=== PATIENT | female | born 1955 | race Caucasian/White ===

== ENCOUNTER 2018-11-15 22:56 | Emergency (ER) | payer OTHER, BC ==
[~2018-11-15] VITALS: Ht 170.2 cm; Wt 59.0 kg
[2018-11-15 23:28] LABS: URINE BILIRUBIN NEGATIVE (Negative); URINE BLOOD TRACE (Negative); URINE CLARITY CLEAR; URINE COLOR YELLOW; URINE GLUCOSE-RANDOM* NEGATIVE (Negative); URINE KETONES 2+ (Negative); URINE NITRITE-REFLEX NEGATIVE (Negative); URINE PROTEIN (DIPSTICK) NEGATIVE (Negative); URINE SPECIFIC GRAVITY <= 1.005 (1.005-1.035); URINE UROBILINOGEN 0.2 E.U./dl (0.2-1.0)
[2018-11-15 23:34] LABS: URINE LEUKOCYTES-REFLEX 1+ (Negative)
[2018-11-15 23:35] LABS: CASTS None Seen /LPF (None Seen); MUCUS None Seen strn/LPF (None Seen); SQUAMOUS 0-3 Few /LPF (0-3); URINE RBC None Seen /HPF (0-2); URINE WBC-REFLEX 0-5 Rare /HPF (0-5)
[2018-11-15 23:36] LABS: BACTERIA-REFLEX None Seen /HPF (None Seen); CRYSTALS None Seen /LPF (None Seen)
[2018-11-15 23:37] LABS: HEMATOCRIT 35.7 % (37.0-47.0); HEMOGLOBIN 12.3 gm/dL (12.0-15.0); MCHC 34.6 g/dL (28.0-37.0); MCV 92.6 fL (80.0-100.0); RBC 3.86 mil/uL (4.20-5.00); RDW 13.2 % (10.5-14.5)
[2018-11-15 23:41] LABS: AMP/METHAMP Negative (Negative); BARBITURATES Negative (Negative); BENZODIAZEPINES Negative (Negative); COCAINE Negative (Negative); METHADONE Negative (Negative); OPIATES Negative (Negative); PCP Negative (Negative)
[2018-11-15 23:43] LABS: CALCIUM 8.9 mg/dL (8.5-10.1); CREATININE 0.7 mg/dL (0.6-1.0)
[2018-11-15 23:51] LABS: POTASSIUM 2.8 mmol/L (3.5-5.1)
[2018-11-16] MEDS ORDERED: MAG-OXIDE400 MG PO (01:32)
[2018-11-16] MEDS ORDERED: KLOR-CON 1010 MEQ PO (01:32)
[2018-11-16 02:15] VITALS: BP 153/82
[2018-11-17] MEDS ORDERED: ZOLOFT25 MG (00:25)
[2018-11-17] MEDS ORDERED: WELLBUTRIN 100100 MG PO (00:25)
[2018-11-17] MEDS ORDERED: CLONAZEPAM 0.50.5 M1 (00:26)
[2018-11-17] MEDS ORDERED: TIROSINT25 MCG (00:26)
[2018-11-17] MEDS ORDERED: TRAZODONE HCL50 MG (00:27)
[2018-11-17] MEDS ORDERED: NIACIN50 MG (00:27)
[2018-11-17] MEDS ORDERED: ZOCOR20 MG (00:27)
== END 2018-11-16 02:15 | disposition home or self-care (01) ==
LOC: ER 22:56
PROVIDERS: Emergency Medicine
DX: R41.0 Disorientation, unspecified (principal); E83.42 Hypomagnesemia; E87.6 Hypokalemia; Z88.2 Allergy status to sulfonamides

== ENCOUNTER 2018-11-16 17:36 | Inpatient (IN) | payer OTHER, BC ==
[~2018-11-16] VITALS: Ht 170.2 cm; Wt 59.0 kg
[~2018-11-16 17:36] MED LIST: KLOR-CON 1010 MEQ PO; MAG-OXIDE400 MG PO
[2018-11-16 17:37] VITALS: BP 126/91
[2018-11-16 19:33] LABS: ABSOLUTE NEUTROPHILS 3.4 thou/uL (1.4-8.2); BASOPHILS 0.8 % (0.0-2.0); HEMATOCRIT 37.9 % (37.0-47.0); HEMOGLOBIN 12.8 gm/dL (12.0-15.0); LYMPHOCYTES 26.3 % (24.0-44.0); MCH 31.5 pg (26.0-34.0); MCHC 33.8 g/dL (28.0-37.0); MCV 93.3 fL (80.0-100.0); MONOCYTES 10.6 % (1.0-8.0); PLATELET COUNT 226 thou/uL (150-400); POLYS 61.3 % (36.0-66.0); RBC 4.06 mil/uL (4.20-5.00); RDW 13.6 % (10.5-14.5); WBC 5.5 thou/uL (4.0-11.0)
[2018-11-16 19:39] LABS: CALCIUM 9.1 mg/dL (8.5-10.1); CREATININE 0.7 mg/dL (0.6-1.0)
[2018-11-16 19:41] LABS: POTASSIUM 3.6 mmol/L (3.5-5.1)
[2018-11-16 20:03] LABS: TSH 4.195 uIU/mL (0.358-3.740)
[2018-11-16 20:40] LABS: AMP/METHAMP Negative (Negative); BARBITURATES Negative (Negative); BENZODIAZEPINES Negative (Negative); COCAINE Negative (Negative); METHADONE Negative (Negative); OPIATES Negative (Negative); PCP Negative (Negative)
--- NOTE | 2018-11-16 22:52 | NUR ---
ANA RUIZ FROM BEHAVIOUR UNIT IN THE ROOM ASSESSING PT.
[2018-11-16 23:56] VITALS: BP 127/70
[2018-11-17] MEDS ORDERED: WELLBUTRIN 100100 MG PO (00:25)
[2018-11-17] MEDS ORDERED: ZOLOFT25 MG (00:25)
[2018-11-17] MEDS ORDERED: TIROSINT25 MCG (00:26)
[2018-11-17] MEDS ORDERED: CLONAZEPAM 0.50.5 M1 (00:26)
[2018-11-17] MEDS ORDERED: ZOCOR20 MG (00:27)
[2018-11-17] MEDS ORDERED: NIACIN50 MG (00:27)
[2018-11-17] MEDS ORDERED: TRAZODONE HCL50 MG (00:27)
[2018-11-17 00:30] VITALS: BP 132/70
[2018-11-17 01:09] VITALS: BP 140/84
--- NOTE | 2018-11-17 03:03 | NUR ---
ADMISSION NOTE: A 63 YEAR OLD FEMALE CAME IN FROM THE ER VIA CART AND ER PERSONNEL. THE PT HAD CAME TO THE ER YESTERDAY AND THEY HAD LET HER GO HOME. SO SHE CAME BACK TODAY AND WAS ADMITTED FOR PYSCHOSIS AND ANXIETY. SHE HAS A HISTORY OF HYPOTHYROID, FREQUENT UTI'S, PANIC ATTACKS, AND FAINTING. WALKS WITH AN UNSTEADY GAIT THIS AM, SHE RECEIVED MEDICATION IN THE ER. SHE HAS BRUISES NOTES ON HER RIGHT LEG/KNEE. SHE RECEIVED 1 LITER OF FLUIDS IN THE ER. STATED THAT SHE DOES NOT DO ANY STREET DRUGS, SHE DRINKS ONCE A MONTH. VERY ANXIOUS THIS AM AND VERY PARANOID. RATES HER ANXIETY A 10/10 AND HER DEPRESSION A 10/10. DENIES HAVING ANY SUICIDAL THOUGHTS OR HOMICIAL THOUGHTS. STARTED ON 12 MINUTE ROUNDS FOR HER SAFETY.
--- NOTE | 2018-11-17 07:46 | EKG ---
[place] [address] [facility] [place] [address] ELECTROCARDIOGRAM REPORT Name: TREE ISRAEL Room #: 517-A ADM IN M.R.#: [id number] ������������������ Admission: 11/16/18 ������������������ Attend Phys: Johny Low DO Discharge: ������������������ Date of : 51 Report #: [id number] ����������������������������������������������������������������� [id number] THIS REPORT FOR: //name// [facility] ED Test Date: 2018-11-16 Test Time: 17:43:19 Pat Name: TREE ISRAEL Department: Room: [facility] Gender: F Nurse Advocate: PARTH : 1955 Requested By: Derek Saenz Order Number: [id number] MD: Eagle Busby Measurements Intervals [place] Rate: 106 P: 48 AR: 145 QRS: 38 QRSD: 79 T: 1 QT: 392 QTc: 521 Interpretive Statements Sinus tachycardia Poor R wave progression Nonspecific ST and T wave abnormality Prolonged QT interval No previous ECG available for comparison Electronically Signed On 11-17-2018 7:46:30 CDT by Eagle Busby [email or web address] ��������������������������������������������� <ELECTRONICALLY SIGNED> ���������������������������������������� By: Eagle Busby MD, [facility] ��������������������������������������������� 11/17/18 0746 [id number] Eagle Busby MD, [facility] /EPI
--- NOTE | 2018-11-17 13:41 | NUR ---
ASSUMED CARE OF PT AT 0700. ASSESSMENT CHARTED. A&0 TO PERSON, PLACE, AND TIME. STATES SHE WANTS TO GO HOME. DENIES PAIN. C/O DIZZINESS WHEN STANDING UP. STATES SHE WANTS TO RESUME HER NORMAL MEDICATION REGIMEN, PHYSICIAN NOTIFIED. BRUISES NOTED ON ARMS AND LEGS. PT IS ANXIOUS AND FRUSTRATED AT TIMES. MEDS GIVEN ORDERED. PT UP AD DIONNA WITH STEADY GAIT. WILL CONTINUE TO MONITOR FREQUENTLY.
[2018-11-17 16:09] LABS: FOLIC ACID 47.5 ng/mL (8.6-58.9)
[2018-11-17 19:58] VITALS: BP 154/86
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
[2018-11-18 00:25] VITALS: BP 154/86
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
[2018-11-18 06:16] LABS: CALCIUM 8.8 mg/dL (8.5-10.1); CREATININE 0.6 mg/dL (0.6-1.0); MAGNESIUM 2.4 mg/dL (1.8-2.4); POTASSIUM 4.3 mmol/L (3.5-5.1)
[2018-11-18 08:47] VITALS: BP 149/98
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
--- NOTE | 2018-11-18 16:35 | NUR ---
ASSUMED CARE AT 0700 TODAY. PT. UP WALKING WITH A WALKER, HOWEVER, HE IS VERY UNSTEADY ON HIS FEET AND NEEDS STAFF CLOSE WHEN HE AMBULATES. HE ALMOST FELL IN HIS DOORWAY TO HIS ROOM THIS MORNING. THIS NURSE CAUGHT HIM AND HELPED TO STAND UNTIL THE STAFF COULD ASSIST HIM. HE WAS ASKED TO NOT GET UP ON HIS OWN, BUT HE DOES ANYWAY. HAS ATE MEALS ON THE UNIT AND ATTENDED GROUPS. DENIES SI/HI. HAVE NOT NOTICED OR HEARD ANY AVH. HE HAS BEEN COOPERATIVE WITH TAKING HIS MEDICATIONS. 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 IN AMBULATION. SPEECH IS CLEAR.
--- NOTE | 2018-11-18 18:21 | NUR ---
1805: Admitted to room 520-B via gerney from ER. VS [id number]/84, SAO2 on RA 97%. Inventory sheet initiated. Awaiting DPOA paperwork from dtr Mickie. Pt courrently resides at [facility], facility sent pt into ER for psych eval due to yelling and increased agitation.
[2018-11-18 19:47] VITALS: BP 170/96
[2018-11-19 01:21] VITALS: BP 170/96
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
[2018-11-19 09:18] VITALS: BP 114/83
--- NOTE | 2018-11-19 11:56 | NUR ---
ASSUMED CARE AT 0700 THIS MORNING. PT. UP FOR MEALS/MEDS/GROUPS. SHE HAS BEEN MINGLING WITH PEERS. ABOUT 1100 SHE CAME TO THIS NURSE AND REQUESTED THAT ANOTHER PEER THAT CONTINUALLY TALKS LOUD BE PUT IN THE QUIET ROOM HER VOICE BOTHERED HER. SHE WAS INFORMED THAT A LOUD VOICE IS NOT A REASON TO PUT HER IN THE QUIET ROOM. SHE GOT UPSET WITH THIS RN AND STORMED INTO HER ROOM. SHE WAS MUTTERING TO HERSELF THE WHOLE TIME: I HOPE I GET OUT OF THIS PLACE SOON I CANNOT TAKE THIS MUCH LONGER. THE PT. WAS GIVEN AN ATIVAN 1 MG PRN. SHE HAS BEEN IN HER ROOM RELAXING SINCE THIS INCIDENCE.
[2018-11-19 19:58] VITALS: BP 130/70
--- NOTE | 2018-11-19 21:22 | NUR ---
ASSUMED CARE OF THE PT AT 191 PM. ALERT ET ORIENTED X 3. MAKES NEEDS KNOWN, WALKS WITH A STEADY GAIT. HEART RATE REGULAR, LUNGS CLEAR BILATERALLY, RESP., EVEN, AND UNLABORED. +BS HEARD IN ALL 4 QUADRANTS. ABD SOFT ET NON TENDOR. +PP BILATERALLY. RATES HER ANXIETY A 10/10 AND HER DEPRESSION A 6/10. DENIES A/V HALLUNICATIONS. DENIES SI/HI. REMAINS ON 12 MINUTE CHECKS FOR HER SAFETY.
[2018-11-20] MEDS ORDERED: CLONAZEPAM 0.50.5 M1 PO (09:42)
[2018-11-20] MEDS ORDERED: OXCARBAZEPINE300 MG PO (09:43)
[2018-11-20] MEDS ORDERED: COLACE 100 MG100 MG PO (09:44)
[2018-11-20 09:46] VITALS: BP 122/82
[2018-11-20 09:53] VITALS: BP 138/83
[2018-11-20 10:58] VITALS: BP 138/83
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
--- NOTE | 2018-11-23 20:45 | D ---
[facility] [place] [address] DISCHARGE SUMMARY Name: TREE ISRAEL Room #: 517-A [facility] IN M.R.#: [id number] Admission: 11/16/18 ������������������ Attend Phys: Johny Low DO Discharge: 11/20/18 ������������������ Date of : 51 Report #: [id number] THIS REPORT FOR: //name// CC: Johny Low [facility] unknown DATE OF SERVICE: 11/20/2018 ATTENDING PHYSICIAN: Johny Low DO SCRIPT MANAGER: Margarito Aldridge MD DISCHARGE DIAGNOSES: Other bipolar and related disorder, improved. Medical comorbidities, migrainous headache, hypokalemia, hypomagnesemia, hyperlipidemia and hypothyroidism. DISCHARGE PLAN: She is discharged to her home. Followup will be I believe with Dr. Nato Fan, pavithra as assigned by her social services assistant. The patient is encouraged to pursue psychotherapy. DISCHARGE MEDICATIONS: Are as follows: Clonazepam 0.5 mg p.o. at bedtime p.r.n., Rx given for 20, oxcarbazepine 150 mg p.o. q. 12 hours for mood stabilization, docusate, senna 100 mg p.o. b.i.d. for bowel motility, continue levothyroxine sodium 25 mcg p.o. daily for hypothyroidism, niacin 50 mg p.o. daily for hypertriglyceridemia, simvastatin 20 mg p.o. daily for cholesterol. REASON FOR ADMISSION: Psychotic, manic behavior to the ER at [facility] requiring 96-hour hold. HOSPITAL COURSE: The patient was admitted to the Adult Psychiatry Unit. She was started on a mood stabilizer. She initially was a bit antagonistic to the therapeutic milieu. After about a day, she calmed down and was receptive to groups and made some friends with a couple of the peers. Her mood improved. Her son visited and she was not suicidal or homicidal, felt to be safe for discharge to the community. PHYSICAL EXAMINATION: VITAL SIGNS: On the day of discharge, temperature is 36.4, pulse 80, respirations 18, BP 138/83, O2 sat 99%. MUSCULOSKELETAL: Normal gait and station. LABORATORY DATA: This admission, CBC was grossly normal. Chemistries, also electrolytes within normal limits. Toxicology, UDS is negative. Serum alcohol is negative. MENTAL STATUS EXAMINATION: This is a well-developed, well-nourished [facility] [address] [place] [address] DISCHARGE SUMMARY Name: TREE ISRAEL Room #: 517-A [facility] IN M.R.#: [id number] Admission: 11/16/18 ������������������ Attend Phys: Johny Low, Discharge: 11/20/18 ������������������ Date of : 51 Report #: [id number] female, appearing stated age. Attention intact. Concentration intact. Speech slightly pushed. Thought process linear and goal directed. Thought content focused on discharge. Mood and affect: Mood euthymic, fair range. Denied SI, HI. Denied hopelessness, helplessness. Memory not formally tested. Insight fair. Judgment fair to limited. Fund of knowledge at least average range. Prognosis for this patient is fair. She pursues seeking outpatient psychiatric treatment. The possibility of this being a single episode of micheal was discussed with the patient and her outpatient psychiatrist may decide to taper off the mood stabilizer after a few months. ��������������������������������������������� <ELECTRONICALLY SIGNED> ���������������������������������������� By: Johny Low DO ��������������������������������������������� 11/23/18 2045 [id number] Johny Low DO /nt
== END 2018-11-20 13:31 | disposition home or self-care (01) | DRG 885 ==
LOC: ER 17:36 → EROBS 23:09 → SBH 23:09
PROVIDERS: Emergency Medicine; Nurse Practitioner; ADMIT Psychiatry & Neurology Psychiatry
DX: F20.9 Schizophrenia, unspecified (principal); F41.9 Anxiety disorder, unspecified; F31.9 Bipolar disorder, unspecified; F29 Unspecified psychosis not due to a substance or known physiological condition; G43.909 Migraine, unspecified, not intractable, without status migrainosus; F68.8 Other specified disorders of adult personality and behavior; E78.5 Hyperlipidemia, unspecified; E03.9 Hypothyroidism, unspecified; Z87.891 Personal history of nicotine dependence; E83.42 Hypomagnesemia; E87.6 Hypokalemia; F41.0 Panic disorder [episodic paroxysmal anxiety]; Z80.0 Family history of malignant neoplasm of digestive organs; Z90.49 Acquired absence of other specified parts of digestive tract; I25.2 Old myocardial infarction; Z90.710 Acquired absence of both cervix and uterus; Z88.2 Allergy status to sulfonamides
CPT/HCPCS: 10880